=== PATIENT | female | born 1955 | race Caucasian/White ===

== ENCOUNTER → 2016-10-15 | Outpatient (CLI) | payer SELFPAY ==
--- NOTE | 2016-10-16 08:14 | REP ---
CHEST, TWO VIEWS: Two views of the chest are performed. There are no prior studies for comparison. There appears to be mild linear fibroatelectatic change in each lung base. No acute infiltrate is seen. The heart is normal in size. The mediastinal silhouette is unremarkable. There are mild degenerative changes of the spine. IMPRESSION: Mild bibasilar fibroatelectatic change. No acute infiltrate. Signed by Frank Madera MD 10/16/2016 12:22 P
== END ==
LOC: M WUC 12:11
PROVIDERS: ATTEND Physician Assistant
DX: J45.30 Mild persistent asthma, uncomplicated (principal)

== ENCOUNTER → 2020-07-26 | Outpatient (REF) | payer MEDICARE | LOC: M LAB REF 13:31 | PROVIDERS: ATTEND Internal Medicine Pulmonary Disease | DX: J45.51 Severe persistent asthma with (acute) exacerbation (principal) ==

== ENCOUNTER → 2024-09-12 | Outpatient (CLI) | payer MEDICARE | LOC: M WUC 12:27 | PROVIDERS: ATTEND Internal Medicine Pulmonary Disease | DX: J45.40 Moderate persistent asthma, uncomplicated (principal) ==

== ENCOUNTER → 2025-03-31 | Outpatient (REF) | payer MEDICARE | LOC: M LAB REF 12:57 | PROVIDERS: ATTEND Internal Medicine Pulmonary Disease | DX: J45.40 Moderate persistent asthma, uncomplicated (principal) ==